=== PATIENT | male | born 1955 | race Hispanic/Latino ===

== ENCOUNTER 2023-11-27 06:09 | Observation (INO) | payer OTHER ==
[2023-11-23 13:17] LABS: BASOPHILS # (AUTO) 0.03 K/uL (0.00-0.20); BASOPHILS % (AUTO) 0.3 % (0.0-5.0); EOSINOPHILS # (AUTO) 0.11 K/uL (0.00-0.70); EOSINOPHILS % (AUTO) 1.2 % (0.0-8.0); HEMATOCRIT 37.5 % (42-54); IMMATURE GRANULOCYTE ABSOLUTE 0.02 K/uL (0-1); LYMPHOCYTES # (AUTO) 2.1 K/uL (1.0-4.8); LYMPHOCYTES % (AUTO) 23.7 % (21.0-51.0); MEAN CORPUSCULAR HEMOGLOBIN 29.6 pg (27.0-33.0); MEAN CORPUSCULAR HGB CONC 33.6 g/dL (32.0-36.0); MEAN CORPUSCULAR VOLUME 88.2 fL (79-99); MONOCYTES # (AUTO) 0.6 K/uL (0.1-1.0); MONOCYTES % (AUTO) 6.6 % (3.0-13.0); PLATELET COUNT (AUTO) 175 K/uL (130-400); RED BLOOD CELL COUNT(AUTO) 4.25 MIL/uL (4.50-6.20); WHITE BLOOD COUNT (AUTO) 8.8 K/uL (4.8-10.8)
[2023-11-23 13:25] VITALS: BP 194/83; PULSE 82; RESP 18
[2023-11-23 13:27] LABS: INR 1.01 (0.85-1.15); PROTHROMBIN TIME 10.9 SEC (9.6-11.6)
[2023-11-23 13:28] LABS: PARTIAL THROMBOPLASTIN TIME 24.3 SEC (26.3-35.5)
[2023-11-23 13:36] LABS: ADD UA MICROSCOPIC YES
[2023-11-23 13:37] LABS: APPEARANCE,URINE CLEAR (CLEAR); BILIRUBIN,URINE NEGATIVE (NEGATIVE); COLOR,URINE LIGHT-YELLOW (YELLOW); GLUCOSE, URINE (UA) NEGATIVE (NEGATIVE); KETONES,URINE NEGATIVE (NEGATIVE); LEUKOCYTE ESTERASE ,URINE NEGATIVE Leu/uL (NEGATIVE); MUCUS,URINE RARE LPF (None Seen); NITRATE,URINE NEGATIVE (NEGATIVE); OCCULT BLOOD,URINE NEGATIVE (NEGATIVE); PH,URINE 5.5 (5.0-8.0); PROTEIN,URINE NEGATIVE (NEGATIVE); UROBILINOGEN,URINE 0.2 mg/dL (0.2-1.0); WBC,URINE 0-1 /HPF (0-1)
[2023-11-23 15:13] LABS: ALBUMIN 3.7 g/dL (3.5-5.0); CARBON DIOXIDE 29 mmol/L (21-32); CHLORIDE 106 mmol/L (101-111); CREATININE 1.2 mg/dL (0.5-1.3); GLOMERULAR FILTR. RATE CALC 65 mL/min (>90); GLUCOSE,RANDOM 117 mg/dL (70-105); POTASSIUM 3.7 mmol/L (3.5-5.1); SODIUM SERUM 143 mmol/L (136-145); UREA NITROGEN, BLOOD 12 mg/dL (7-18)
[~2023-11-27] VITALS: Ht 162.6 cm; Wt 76.3 kg
[2023-11-27] VITALS (27 sets, daily range): BP systolic 94–156; BP diastolic 50–101; PULSE 49–96; RESP 7–20; O2SAT 96
[2023-11-27] MEDS: ceFAZolin SODIUM 2 GM VIAL ONE (06:04)
[2023-11-27] MEDS: LACTATED RINGERS 1000ML 1,000 ML IV ONE (06:05)
[~2023-11-27 06:09] MED LIST: BUSP5TAB3 PO; DONE5TAB33 PO; DUTA0.5C37 PO; OMEP40CA21 PO; ROSU10TA72 PO; SERT-439 PO; TRAM50TA4 PO
[2023-11-27] MEDS ORDERED: KETOROLAC 30MG VIAL (30MG/ML) ONE (06:39)
[2023-11-27] MEDS ORDERED: ROPivacaine 0.5% 5MG/ML 30ML ONE ×2 (06:39→06:46)
[2023-11-27] MEDS: acetaMINOPHEN 1,000 MG/100 ML VIAL IV ONE (06:44)
[2023-11-27] MEDS: FAMOTIDINE 20MG VIAL IV ONE (06:44)
[2023-11-27] MEDS ORDERED: KETAMINE 50MG/ML SYRINGE 50 MG/ML DISP.SYRIN ONE (06:46)
[2023-11-27] MEDS ORDERED: LIDOCAINE PF 100MG/5ML (2%) SYRINGE 5ML ONE (06:47)
[2023-11-27] MEDS ORDERED: ROCURONIUM BROMIDE 10MG/1ML 5ML VL ONE (06:48)
[2023-11-27] MEDS ORDERED: FENTANYL CITRATE PF 50 MCG/1 ML 2ML VIAL ONE (06:48)
[2023-11-27] MEDS ORDERED: PROPOFOL 10 MG/ML 20ML VIAL IV ONE (06:48)
[2023-11-27] MEDS: TRANEXAMIC ACID 1000MG/10ML ONE (07:01)
[2023-11-27] MEDS ORDERED: DEXAMETHASONE SOD PHOSPHATE 10MG/ML 1ML VIAL ONE (07:22)
[2023-11-27] MEDS ORDERED: ONDANSETRON 4MG INJ ONE (07:22)
[2023-11-27] MEDS ORDERED: POTASSIUM CHLORIDE 10% ELIXIR 20 MEQ/15 ML UDCUP PO PRN (07:30)
[2023-11-27] MEDS ORDERED: CALCIUM CARB 500MG PO PRN (07:30)
[2023-11-27] MEDS: ceFAZolin SODIUM 2 GM VIAL IVPB ONE (07:30)
[2023-11-27] MEDS: KETOROLAC 15MG/ML VIAL (15MG/ML) IV SCH (07:30)
[2023-11-27] MEDS: 0.9%NACL 1000ML 1,000 ML IV SCH (07:30)
[2023-11-27] MEDS ORDERED: FERROUS FUMARATE 324 MG TABLET PO PRN (07:30)
[2023-11-27] MEDS ORDERED: ONDANSETRON 4MG INJ IVP PRN (07:30)
[2023-11-27] MEDS ORDERED: POTASSIUM CHLORIDE 20MEQ/100ML 100 ML IV PRN (07:30)
[2023-11-27] MEDS ORDERED: NEOSTIGMINE METHYLSULFATE 1MG/ML IV ONE (07:47)
[2023-11-27] MEDS ORDERED: GLYCOPYRROLATE 0.2 MG/ML 5 ML VIAL ONE (07:47)
[2023-11-27] MEDS: DOCUSATE SODIUM 100 MG CAP PO SCH (09:00)
[2023-11-27] MEDS: POLYETHYLENE GLYCOL 3350 17 GM POWD.PACK PO SCH (09:00)
[2023-11-27] MEDS: GABAPENTIN 100 MG CAPSULE PO SCH (09:00)
[2023-11-27] MEDS: ceFAZolin SODIUM 2 GM VIAL IVPB SCH (12:19)
[2023-11-27] MEDS: ATORVASTATIN 20 MG TABLET PO SCH (19:58)
[2023-11-27] MEDS: doNEPEZil HCL 5 MG TAB PO SCH (19:58)
[2023-11-27] MEDS: busPIRone HCL 5 MG TABLET PO SCH (19:58)
[2023-11-28] VITALS: BP 122/62; PULSE 90; RESP 20
[2023-11-28 04:00] VITALS: BP 110/56; PULSE 82; RESP 20
[2023-11-28] MEDS: HYDROCODONE/ACETAMINOPHEN 5/325 MG TAB PO PRN (05:07)
[2023-11-28] MEDS: CYCLOBENZAPRINE HCL 10 MG TABLET PO PRN (05:07)
[2023-11-28 05:54] LABS: HEMATOCRIT 29.9 % (42-54); MEAN CORPUSCULAR HGB CONC 33.8 g/dL (32.0-36.0); MEAN CORPUSCULAR VOLUME 88.7 fL (79-99); RED BLOOD CELL COUNT(AUTO) 3.37 MIL/uL (4.50-6.20); RED CELL DISTRIBUTION WIDTH 13.3 % (11.0-15.5); WHITE BLOOD COUNT (AUTO) 10.7 K/uL (4.8-10.8)
[2023-11-28 06:04] LABS: CREATININE 1.4 mg/dL (0.5-1.3); POTASSIUM 3.2 mmol/L (3.5-5.1)
[2023-11-28] MEDS: KCL 20 MEQ ERTAB PO PRN (06:08)
[2023-11-28] MEDS: KETOROLAC 15MG/ML VIAL (15MG/ML) IV PRN (07:51)
[2023-11-28] MEDS: ASPIRIN 325MG EC TAB PO SCH (07:52)
[2023-11-28] MEDS: PANTOPRAZOLE 40 MG TAB DR PO SCH (07:53)
[2023-11-28] MEDS: SERTraline HCL 50 MG TABLET PO SCH (07:53)
[2023-11-28 08:00] VITALS: BP 125/68; PULSE 102; RESP 16; O2SAT 96
[2023-11-28 12:00] VITALS: BP 123/64; PULSE 88; RESP 16
[2023-11-28] MEDS: TRAMADOL HCL 50 MG TABLET PO PRN (13:42)
[2023-11-28] MEDS ORDERED: ASPI-891 PO (15:27)
[2023-11-28] MEDS ORDERED: HYDR-4060 PO (15:27)
[2023-11-28] MEDS ORDERED: DOCU-116 PO (15:27)
[2023-11-28] MEDS ORDERED: CYCL-309 PO (15:27)
[2023-11-28] MEDS ORDERED: GABA100C PO (15:27)
[2023-11-28 16:00] VITALS: BP 125/64; PULSE 83; RESP 16
[2023-11-30] MEDS ORDERED: BisaCODYL 10 MG SUPP.RECT RC PRN (07:30)
== END 2023-11-28 18:05 | disposition home or self-care (01) ==
LOC: DAH 06:09 → DAHIP 06:10 → DAH 06:10 → 4DH 10:34
PROVIDERS: ADMIT Student in an Organized Health Care Education/Training Program; ATTEND Student in an Organized Health Care Education/Training Program
DX: M17.12 Unilateral primary osteoarthritis, left knee (principal); G89.18 Other acute postprocedural pain; M24.562 Contracture, left knee; D62 Acute posthemorrhagic anemia; R26.89 Other abnormalities of gait and mobility; E78.5 Hyperlipidemia, unspecified; Z79.899 Other long term (current) drug therapy; Z87.891 Personal history of nicotine dependence
CPT/HCPCS: 82040; 85025; 80048 ×2; 85610; 85730; 87086; 84134; 86140; 81001; 36415 ×2; 93005; 87641; 64447; 27447; 96376 ×2; 96365; 96366; 96375; 82948 ×4; 73560; 97161; 97116 ×3; 85027; 97530 ×2; G0378 ×33; A4600; A4223 ×2; A4663; A4215 ×2; J7120; J3490 ×7; J3010; J1100; J2001; J2704; J2405; J1885 ×5; J2710; J2795 ×3; J0690 ×4; C1713 ×2; G0168; C1776 ×2; A4649 ×2; A6255; A5120; A4222; A4221; A4216